=== PATIENT | male | born 1985 | race Two or more races ===

== ENCOUNTER 2019-11-16 08:42 | Emergency (ER) | payer SELFPAY ==
[~2019-11-16] VITALS: Ht 170.2 cm; Wt 95.5 kg
[2019-11-16] MEDS ORDERED: ACETAMINOPHEN 325MG TABLET PO ONE (09:45)
[2019-11-16 11:20] VITALS: BP 122/73
== END 2019-11-16 11:36 | disposition home or self-care (01) ==
LOC: ER 08:42
DX: J18.9 Pneumonia, unspecified organism (principal)
CPT/HCPCS: 71045; 99283

== ENCOUNTER 2024-09-02 07:30 | Emergency (ER) | payer SELFPAY ==
[~2024-09-02] VITALS: Ht 172.7 cm; Wt 90.0 kg
[2024-09-02 07:35] VITALS: O2SAT 97
[2024-09-02] MEDS: HYDROCODONE/ACETAMINOPHEN 10/325MG TABLET PO ONE (09:08)
[2024-09-02] MEDS: TETANUS, DIPHTHERIA, PERTUSSIS VAC/PF 0.5ML (>10YR OLD) IM ONE (09:08)
[2024-09-02] MEDS ORDERED: IBUP-2029 MT (09:40)
[2024-09-02 10:03] VITALS: BP 138/85; PULSE 94; RESP 17; TEMP 36.4; O2SAT 97
== END 2024-09-02 10:11 | disposition home or self-care (01) ==
LOC: ER 07:30
DX: S63.256A Unspecified dislocation of right little finger, initial encounter (principal); S02.40DA Maxillary fracture, left side, initial encounter for closed fracture; Y08.89XA Assault by other specified means, initial encounter; Y93.89 Activity, other specified; Y92.89 Other specified places as the place of occurrence of the external cause; Y99.8 Other external cause status
CPT/HCPCS: 70150; 73130; 70450; 70486; 90715; 26770; 90471; 99285; Z7610 ×3